=== PATIENT | male | born 1940 | race Caucasian/White ===

== ENCOUNTER 2018-11-14 09:52 | Inpatient (IN) | payer MEDICARE ==
[~2018-11-14] VITALS: Ht 175.3 cm; Wt 84.4 kg
[2018-11-14] MEDS ORDERED: NS(*) 0.9% 1000 ML BAG 1,000 ML IV ONE ×2 (10:12)
[2018-11-14] MEDS ORDERED: ONDANSETRON 4 MG/2 ML VIAL IVP ONE (10:15)
[2018-11-14 10:21] LABS: PLATELET COUNT, AUTOMATED 262 K/uL (150-450)
--- NOTE | 2018-11-14 10:24 | ER Report ---
History and Physical Time Seen By MD: 09:55 Hx. of Stated Complaint: NAUSEA AND VOMITING SINCE YESTERDAY HPI/ROS CHIEF COMPLAINT: Vomiting HISTORY OF PRESENT ILLNESS: 78-year-old male otherwise healthy comes emergency room today with complaint of vomiting. Patient states he hasn't multiple episodes yesterday and 2 episodes today mostly watery of vomiting mostly after he drinks as Pepto-Bismol or he drinks his water. Patient had some mild epigastric discomfort associated with the vomiting but that is subsequently res olved is completely pain-free on arrival here patient denies any abdominal pain at this time. Patient has chest pain shortness of breath fever chills or additional complaints. REVIEW OF SYSTEMS: Respiratory: No cough, no dyspnea. Cardiovascular: No chest pain, no palpitations. Gastrointestinal: Vomiting no abdominal pain currently Musculoskeletal: No back pain. Remainder of the 14 system rev: Yes Allergies: Coded Allergies: propoxyphene (Verified Allergy, Unknown, 11/14/18) Home Meds Reported Medications Ferrous Sulfate, Dried (IRON) 159 Mg Tablet.er, 159 MG PO EOD 11/14/18 Finasteride (FINASTERIDE) 5 Mg Tablet, 5 MG PO QDAY 11/14/18 Reviewed Nurses Notes: Yes Old Medical Records Reviewed: Yes Constitutional Vital Sign - Last 24 Hours 11/14/18 10:02 Temp 98.7 Pulse 77 Resp 18 B/P (MAP) 164/92 Pulse Ox 85 O2 Delivery Room Air Physical Exam General Appearance: The patient is alert, has no immediate need for airway protection and no current signs of toxicity. [ ] Eyes: Pupils equal and round no injection. Respiratory: Chest is non tender, lungs are clear to auscultation. Cardiac: regular rate and rhythm [ ] Gastrointestinal: Abdomen is soft and non tender, no masses, bowel sounds normal. Musculoskeletal: Neck: Neck is supple and non tender. Extremities have full range of motion and are non tender. Skin: No rashes or lesions. [ ] DIFFERENTIAL DIAGNOSIS: After history and physical exam differential diagnosis was considered for enteritis gastroneuritis colitis and diverticulitis dehydration stomach flu Medical Decision Making Data Points Result Diagram: 11/14/18 1005 11/14/18 1005 Laboratory Hematology Test 11/14/18 10:05 White Blood Count 12.9 k/uL (4.5-11.0) H Red Blood Count 5.86 M/uL (4.00-5.60) H Hemoglobin 14.7 g/dL (14.0-18.0) Hematocrit 44.2 % (42.0-52.0) Mean Corpuscular Volume 75.5 fL (80.0-96.0) L Mean Corpuscular Hemoglobin 25.2 pg (26.0-33.0) L Mean Corpuscular Hemoglobin Concent 33.3 g/dL (32.0-36.0) Red Cell Distribution Width 21.0 % (11.5-14.5) H Platelet Count 262 K/uL (150-450) Mean Platelet Volume 8.3 fL (7.2-11.1) Neutrophils (%) (Auto) 86.6 % (39.4-72.5) H Lymphocytes (%) (Auto) 7.5 % (17.6-49.6) L Monocytes (%) (Auto) 5.5 % (4.1-12.4) Eosinophils (%) (Auto) 0.1 % (0.4-6.7) L Basophils (%) (Auto) 0.3 % (0.3-1.4) Nucleated RBC Relative Count (auto) 0.0 /100WBC Neutrophils # (Auto) 11.1 K/uL (2.0-7.4) H Lymphocytes # (Auto) 1.0 K/uL (1.3-3.6) L Monocytes # (Auto) 0.7 K/uL (0.3-1.0) Eosinophils # (Auto) 0.0 K/uL (0.0-0.5) Basophils # (Auto) 0.0 K/uL (0.0-0.1) Nucleated RBC Absolute Count (auto) 0.01 K/uL Peripheral Blood Smear Yes Y/N Chemistry Test 11/14/18 10:05 Sodium Level 120 mmol/L (137-145) Potassium Level 3.2 mmol/L (3.5-5.0) Chloride Level 79 mmol/L (98-107) Carbon Dioxide Level 27 mmol/L (22-30) Blood Urea Nitrogen 13 mg/dl (9-21) Creatinine 0.90 mg/dl (0.66-1.25) Glomerular Filtration Rate Calc > 60.0 Random Glucose 138 mg/dl (75-110) Calcium Level 8.3 mg/dl (8.4-10.2) Total Bilirubin 0.8 mg/dl (0.2-1.3) Aspartate Amino Transf (AST/SGOT) 32 U/L (0-35) Alanine Aminotransferase (ALT/SGPT) 25 U/L (0-56) Alkaline Phosphatase 76 U/L (0-126) Total Protein 7.2 g/dl (6.3-8.2) Albumin 3.9 g/dl (3.5-5.0) Lipase 162 U/L (23-300) Urinalysis Test 11/14/18 10:45 Urine Color Straw Urine Clarity Clear Urine pH 8.0 pH (4.8-9.5) Urine Specific [place] 1.009 Urine Protein Negative mg/dL (NEGATIVE) Urine Glucose (UA) 50 mg/dL (NEGATIVE) Urine Ketones Negative mg/dL (NEGATIVE) Urine Blood Small (NEGATIVE) Urine Nitrite Negative (NEGATIVE) Urine Bilirubin Negative (NEGATIVE) Urine Urobilinogen Negative mg/dL (0.2-1.9) Urine Leukocyte Esterase Negative (NEGATIVE) Urine RBC None /HPF (0-2/HPF) Urine WBC None /HPF (0-5/HPF) Urine Squamous Epithelial Cells None /LPF (</=FEW) Urine Bacteria Negative /HPF (NONE-FEW) Urine Mucus None /HPF (NONE-FEW) ED Course/Re-evaluation ED Course ED course medical decision some severe male comes in here with diarrhea and vomited last couple days his sodium was 120 chloride of 77 hypochloremia hyponatremia fluid resuscitation initiated will be admitted for continual sodium replacement Decision to Disposition Date: Nov 14, 2018 Decision to Disposition Time: 11:59 Depart Departure Latest Vital Signs Vital Signs Date Time Temp Pulse Resp B/P (MAP) Pulse Ox O2 Delivery O2 Flow Rate FiO2 11/14/18 10:02 98.7 77 18 164/92 85 Room Air Impression: Primary Impression: Hyponatremia Condition: Improved Disposition: Admitted from ER CHRISTY DANIEL MD Nov 14, 2018 10:24
[2018-11-14] MEDS ORDERED: FERR159T PO (10:52)
[2018-11-14] MEDS ORDERED: FINA5TAB67 PO (10:52)
[2018-11-14 13:01] VITALS: BP 123/88
[2018-11-14] MEDS ORDERED: MULT-1335 PO (13:32)
[2018-11-14] MEDS ORDERED: PROMETHAZINE 25 MG/ML 1 ML AMP IVP PRN (14:50)
[2018-11-14] MEDS ORDERED: NS(*) 0.9% 1000 ML BAG 1,000 ML IV PRN (14:50)
[2018-11-14 15:43] VITALS: BP 118/81
[2018-11-14] MEDS ORDERED: ACETAMINOPHEN 325 MG TAB PO PRN (16:10)
[2018-11-14] MEDS ORDERED: FLUSH 10 ML SYR IVP PRN (16:10)
[2018-11-14] MEDS ORDERED: ONDANSETRON 4 MG/2 ML VIAL IVP PRN (16:10)
[2018-11-14 17:37] VITALS: BP 143/84
--- NOTE | 2018-11-14 20:02 | History & Physical ---
History of Present Illness Chief Complaint n/v History of Present Illness 78M presented with concern for nausea, vomiting and diarrhea. PMHx significant for afib, BPH. Reports acute onset diarrhea yesterday with nausea and vomiting. Difficulties keeping fluids down and on presentation was found to have hyponatremia at 120. Admitted for treatment of hyponatremia and monitoring. History Problems: (1) BPH (benign prostatic hyperplasia) (2) Atrial fibrillation Home Meds Reported Medications Multivitamin With Minerals (MULTIPLE VITAMIN) 1 Each Tablet, 1 EACH PO DAILY, TAB 11/14/18 Ferrous Sulfate, Dried (IRON) 159 Mg Tablet.er, 159 MG PO EOD 11/14/18 Finasteride (FINASTERIDE) 5 Mg Tablet, 5 MG PO QDAY 11/14/18 Allergies: Coded Allergies: propoxyphene (Verified Allergy, Unknown, 11/14/18) Patient History: FH: Alzheimers disease BROTHER OR SISTER, FH: asthma MOTHER, FH: diabetes mellitus BROTHER OR SISTER FH: emphysema FATHER, FH: heart attack MOTHER, Hx Smoking: No Smoking Status: Never Smoker Hx Alcohol Use: Yes Hx Substance Use Disorder: No Social Drug Use: Never Review of Systems All Systems Reviewed/Normal: Yes, Except as Noted Gastrointestinal: Nausea, Vomiting, Diarrhea Exam Vital Signs Vital Signs Date Time Temp Pulse Resp B/P (MAP) Pulse Ox O2 Delivery O2 Flow Rate FiO2 11/14/18 17:37 99.0 88 16 143/84 (103) 95 Nasal Cannula 2.5 General Appearance: Alert, Awake, No Acute Distress, Afebrile Neuro: No Gross deficits Cardiovascular: Other (irregularly irregular) Respiratory: No Respiratory Distress GI: Abd Soft and Non-Tender Extremities: Soft and Non Tender, Warm, Pulses, Perfused; No Edema Medical Decision Making Data Points Result Diagram: 11/14/18 1005 11/14/18 3776 Assessment and Plan Problems: (1) Hyponatremia Status: Acute Assessment & Plan: Secondary to n/v/d. Will give IV NS and monitor response. Anticipate discharge in 24-48 hours. (2) Nausea & vomiting Assessment & Plan: Continues to endorse nausea, vomiting improved. Appears clinically dry, will use antiemetics and treat hyponatremia. (3) Atrial fibrillation Assessment & Plan: He does not take any rate control or anticoagulation for this. Declines any medications at this time. (4) BPH (benign prostatic hyperplasia) Assessment & Plan: He is on chronic finasteride. PVR showed >500cc and he has urinary frequency. Declines Raines, started Flomax 0.4mg qhs. Venous Thromboembolism Antithrombotics Is Pt On Any Antithrombotics?: Yes Exam Sepsis Risk: No Definite Risk TRINA MCCORMACK DO Nov 14, 2018 20:02
[2018-11-14 20:03] VITALS: BP 131/90
[2018-11-14] MEDS ORDERED: TAMSULOSIN HCL 0.4 MG CAP PO SCH (21:00)
[2018-11-15 01:00] VITALS: BP_SYST 104; BP_SYST 99; BP_DIAS 47
[2018-11-15 03:22] VITALS: BP 111/62
[2018-11-15 06:56] VITALS: BP 117/78
[2018-11-15] MEDS ORDERED: ENOXAPARIN 40 MG/0.4ML SYR SC SCH (09:00)
[2018-11-15] MEDS ORDERED: FINASTERIDE 5 MG TAB PO SCH (09:00)
[2018-11-15 09:52] VITALS: Ht 175.3 cm; Wt 84.4 kg
[2018-11-15 11:03] VITALS: BP 126/68
--- NOTE | 2018-11-15 11:39 | Hospitalist Depart ---
Discharge Summary Reason for Hosp/Final Diag: (1) Hyponatremia Status: Acute Hospital Course & Plan: Secondary to n/v/d that started the morning of admission. He has never had problems with hyponatremia previously. He as trying to drink fluids before going to the ER, which is likely what exacerbated the hyponatremia. He was given NS. His sodium corrected quickly. Because the hyponatremia was acute (i.e. less than 48 hours), he was allowed to correct at his own rate. He is tolerating oral intake without further n/v and hasn't had anymore diarrhea for about 24 hours. (2) Nausea & vomiting Status: Resolved Hospital Course & Plan: The cause was likely related to preformed toxin from food ingestion. Symptoms resolved. (3) BPH (benign prostatic hyperplasia) Status: Chronic Hospital Course & Plan: He is on chronic finasteride. PVR showed >500cc and he has urinary frequency. He initially declined a Raines, but later had one placed. He was given Flomax 0.4mg last night. He likely had been on it previously, but stopped it secondary to reading the side effects. He had his Raines catheter removed this morning and has been able to void adequately. (4) Atrial fibrillation Status: Chronic Hospital Course & Plan: He does not take any rate control or anticoagulation for this. Declines any medications at this time. Departure Weight (Pounds): 186 Result Diagram: 11/14/18 1005 11/15/18 0701 Item Value Date Time White Blood Count 12.9 k/uL H 11/14/18 1005 Neutrophils (%) (Auto) 86.6 % H 11/14/18 1005 Lymphocytes (%) (Auto) 7.5 % L 11/14/18 1005 Monocytes (%) (Auto) 5.5 % 11/14/18 1005 Eosinophils (%) (Auto) 0.1 % L 11/14/18 1005 Basophils (%) (Auto) 0.3 % 11/14/18 1005 Nucleated RBC Relative Count (auto) 0.0 /100WBC 11/14/18 1005 Sodium Level 120 mmol/L *L 11/14/18 1005 Potassium Level 3.2 mmol/L L 11/14/18 1005 Chloride Level 79 mmol/L *L 11/14/18 1005 Blood Urea Nitrogen 13 mg/dl 11/14/18 1005 Creatinine 0.90 mg/dl 11/14/18 1005 Carbon Dioxide Level 27 mmol/L 11/14/18 1005 Random Glucose 138 mg/dl H 11/14/18 1005 Calcium Level 8.3 mg/dl L 11/14/18 1005 Total Bilirubin 0.8 mg/dl 11/14/18 1005 Aspartate Amino Transf (AST/SGOT) 32 U/L 11/14/18 1005 Alanine Aminotransferase (ALT/SGPT) 25 U/L 11/14/18 1005 Alkaline Phosphatase 76 U/L 11/14/18 1005 Lipase 162 U/L 11/14/18 1005 Thyroid Stimulating Hormone (TSH) 2.61 uIU/ml 11/14/18 1005 B-Type Natriuretic Peptide 73 pg/ml 11/14/18 1005 Sodium Level 127 mmol/L L 11/14/18 1856 Sodium Level 133 mmol/L L 11/15/18 0701 Sodium Level 123 mmol/L *L 11/14/18 1334 Blood Urea Nitrogen 11 mg/dl 11/14/18 1334 Blood Urea Nitrogen 11 mg/dl 11/14/18 1856 Blood Urea Nitrogen 12 mg/dl 11/15/18 0701 Creatinine 1.10 mg/dl 11/15/18 0701 Creatinine 1.00 mg/dl 11/14/18 1856 Creatinine 0.90 mg/dl 11/14/18 1334 Urine Specific [place] 1.009 11/14/18 1045 Urine Glucose (UA) 50 mg/dL H 11/14/18 1045 Urine Blood Small 11/14/18 1045 Urine RBC None /HPF 11/14/18 1045 Urine WBC None /HPF 11/14/18 1045 Urine Squamous Epithelial Cells None /LPF 11/14/18 1045 Condition: Improved Discharge: Home Discharge Instructions Home Meds Reported Medications Multivitamin With Minerals (MULTIPLE VITAMIN) 1 Each Tablet, 1 EACH PO DAILY, TAB 11/14/18 Ferrous Sulfate, Dried (IRON) 159 Mg Tablet.er, 159 MG PO EOD 11/14/18 Finasteride (FINASTERIDE) 5 Mg Tablet, 5 MG PO QDAY 11/14/18 Diet: Regular Activity: As Tolerated Special Instructions: Go to the ER or follow up with Dr. Beaulieu for decreased urine output, vomiting, and diarrhea. Copies to: KACI GANNON; ROCIO BEAULIEU MD ; Venous Thromboembolism Antithrombotics Is Pt On Any Antithrombotics?: Yes IGOR JAY MD Nov 15, 2018 11:39
== END 2018-11-15 14:25 | disposition home or self-care (01) | DRG 641 ==
LOC: ER 10:12 → MED 12:22
PROVIDERS: ADMIT Internal Medicine; ATTEND Internal Medicine
DX: E87.1 Hypo-osmolality and hyponatremia (principal); I48.2 Chronic atrial fibrillation; N40.0 Benign prostatic hyperplasia without lower urinary tract symptoms; Z88.8 Allergy status to other drugs, medicaments and biological substances
CPT/HCPCS: 36415; 81001; 82040; 82247; 82310; 82374; 82435; 82565; 82947; 83690; 83880; 84075; 84132; 84155; 84295; 84443; 84450; 84460; 84520; 85025; 96361; 96374; 99284; J1650; J2405; J2550; J7030